=== PATIENT | male | born 1940 | race Caucasian/White ===

== ENCOUNTER 2017-03-24 16:21 | Emergency (ER) | payer OTHER, MEDICARE ==
[~2017-03-24] VITALS: Ht 175.3 cm; Wt 102.1 kg
[~2017-03-24 16:21] MED LIST: AMLODIPINE; BACTRIM DS TAB1 EACH PO; BAYER CHEWABLE81 MG PO; CENTRUM SILVER1 EAC4 PO; FISH OIL 1,001000 MG PO; FLONASE 0.05%50 MCG NASAL; GLIPIZIDE 5 MG T5 MG PO; GLUCOPHAGE1000 MG PO; GLYBURIDE; LISINOPRIL; LISINOPRIL20 MG PO; LORATIDINE 10 M10 M1 PO; METFORMIN; NORVASC 5 MG TAB5 MG PO; PENTOXIFYLLINE400 MG PO; TRENTAL; ZOCOR; ZOCOR 20 MG TAB20 M1 PO
[2017-03-24 17:04] LABS: ABSOLUTE EOSINOPHILS 0.2 thou/uL (0.0-0.7); ABSOLUTE LYMPHOCYTES 0.9 thou/uL (0.8-5.3); ABSOLUTE MONOCYTES 0.5 thou/uL (0.0-1.2); ABSOLUTE NEUTROPHILS 5.7 thou/uL (1.6-8.1); BASOPHILS 0.5 %; EOSINOPHILS 2.1 %; HEMATOCRIT 41.8 % (42.0-52.0); HEMOGLOBIN 14.5 gm/dL (14.0-18.0); LYMPHOCYTES 12.2 %; MCH 30.5 pg (26.0-34.0); MCHC 34.6 g/dL (28.0-37.0); MCV 88.1 fL (80.0-100.0); MONOCYTES 6.9 %; MPV 7.3 fl. (7.2-11.1); NUCLEATED RBCS 0 /100WBC; PLATELET COUNT* 215 thou/uL (150-400); POLYS 78.3 %; RBC 4.75 mil/uL (4.50-6.00); RDW-CV 12.7 % (10.5-14.5); WBC 7.3 thou/uL (4.0-11.0)
[2017-03-24] MEDS ORDERED: CEFDINIR300 MG PO (17:35)
[2017-03-24] MEDS ORDERED: ANTIVERT25 MG PO (17:35)
[2017-03-24 17:58] LABS: ANION GAP 9 mmol/L (7-16); BUN 18 mg/dL (7-18); CHLORIDE 99 mmol/L (98-107); CO2 27 mmol/L (21-32); POTASSIUM 4.2 mmol/L (3.5-5.1); SODIUM 135 mmol/L (136-145)
[2017-03-24 17:59] LABS: ALBUMIN 3.9 g/dL (3.4-5.0); ALKALINE PHOSPHATASE 87 U/L (46-116); CALCIUM 9.2 mg/dL (8.5-10.1); GLUCOSE 227 mg/dL (70-99); SGOT 19 U/L (15-37); SGPT 28 U/L (30-65); TOTAL BILIRUBIN 0.7 mg/dL (<0.1-1.0); TOTAL PROTEIN 7.2 g/dL (6.4-8.2); TROPONIN-I LEVEL <0.06 ng/mL (<0.06)
[2017-03-24 18:12] VITALS: BP 180/91
--- NOTE | 2017-03-25 10:20 | EKG ---
[place] [address] ELECTROCARDIOGRAM REPORT Name: MARGI ASENCIO Gilberto Room: [facility]#: [id number] Admission: 03/24/17 Attend Phys: Discharge: 03/24/17 Date of : 44 Report #: [id number] THIS REPORT FOR: //name// [facility] ED Test Date: 2017-03-24 Test Time: 16:34:51 Pat Name: MARGI ASENCIO Department: Room: Gender: M Founder And President: : 1940 Requested By: Griffin Vincent Order Number: [id number] MD: Omar Stanton Measurements Intervals [place] Rate: 70 P: 52 MS: 191 QRS: 1 QRSD: 92 T: 18 QT: 403 QTc: 435 Interpretive Statements Sinus rhythm Baseline wander in lead(s) III Compared to ECG 08/29/2013 08:17:13 No significant changes Electronically Signed On 03-25-2017 10:19:51 SURVEY WORKER by Omar Stanton [email or web address] <ELECTRONICALLY SIGNED> By: Omar Stanton MD, [facility] 03/25/17 1019 1634 163 Omar Stanton MD, FACC /EPI
[2017-04-05] MEDS ORDERED: ASA5UEC PO (13:35)
[2017-04-05] MEDS ORDERED: GLIPIZIDE 10 MG10 MG PO (13:35)
== END 2017-03-24 18:12 | disposition home or self-care (01) ==
LOC: M.ERS 16:21
PROVIDERS: Emergency Medicine Emergency Medical Services
DX: R42 Dizziness and giddiness (principal); E78.00 Pure hypercholesterolemia, unspecified; E11.9 Type 2 diabetes mellitus without complications

== ENCOUNTER 2017-05-02 10:02 | Emergency (ER) | payer OTHER, MEDICARE ==
[~2017-05-02] VITALS: Ht 175.3 cm; Wt 97.1 kg
[~2017-05-02 10:02] MED LIST changes: +ANTIVERT25 MG PO; +ASA5UEC PO; +CEFDINIR300 MG PO; +GLIPIZIDE 10 MG10 MG PO
[2017-05-02] MEDS ORDERED: JANUVIA100 MG PO (10:08)
[2017-05-02 10:43] LABS: ABSOLUTE EOSINOPHILS 0.2 thou/uL (0.0-0.7); ABSOLUTE LYMPHOCYTES 0.5 thou/uL (0.8-5.3); ABSOLUTE MONOCYTES 0.4 thou/uL (0.0-1.2); ABSOLUTE NEUTROPHILS 4.1 thou/uL (1.6-8.1); BASOPHILS 0.8 %; EOSINOPHILS 3.5 %; HEMOGLOBIN 13.9 gm/dL (14.0-18.0); MCH 30.5 pg (26.0-34.0); MCHC 34.7 g/dL (28.0-37.0); MONOCYTES 7.1 %; MPV 7.3 fl. (7.2-11.1); NUCLEATED RBCS 0 /100WBC; PLATELET COUNT* 197 thou/uL (150-400); POLYS 78.6 %; RBC 4.55 mil/uL (4.50-6.00); RDW-CV 13.3 % (10.5-14.5); WBC 5.2 thou/uL (4.0-11.0)
[2017-05-02 10:52] LABS: PROTIME 10.2 Seconds (9.20-11.50)
[2017-05-02 10:54] LABS: ANION GAP 7 mmol/L (7-16); BUN 18 mg/dL (7-18); CALCIUM 9.1 mg/dL (8.5-10.1); CHLORIDE 103 mmol/L (98-107); CO2 26 mmol/L (21-32); GLUCOSE 245 mg/dL (70-99); POTASSIUM 4.6 mmol/L (3.5-5.1); SODIUM 136 mmol/L (136-145)
[2017-05-02 11:05] LABS: ALBUMIN 3.5 g/dL (3.4-5.0); ALKALINE PHOSPHATASE 82 U/L (46-116); LIPASE 260 U/L (73-393); NT-PRO BRAIN NAT PEPTIDE 186 pg/mL (<300); SGOT 13 U/L (15-37); SGPT 24 U/L (30-65); TOTAL BILIRUBIN 0.4 mg/dL (<0.1-1.0); TOTAL PROTEIN 6.6 g/dL (6.4-8.2); TROPONIN-I LEVEL <0.06 ng/mL (<0.06)
[2017-05-02 11:07] LABS: URINE BILIRUBIN NEGATIVE (Negative); URINE BLOOD NEGATIVE (Negative); URINE CLARITY CLEAR; URINE COLOR STRAW; URINE GLUCOSE-RANDOM 2+ (Negative); URINE KETONES NEGATIVE (Negative); URINE LEUKOCYTES-REFLEX NEGATIVE (Negative); URINE NITRITE-REFLEX NEGATIVE (Negative); URINE PROTEIN NEGATIVE (Negative); URINE UROBILINOGEN 0.2 E.U./dl (0.2-1.0)
[2017-05-02 13:42] VITALS: BP 178/70
--- NOTE | 2017-05-02 16:33 | EKG ---
[place] [address] ELECTROCARDIOGRAM REPORT Name: ELIFSAGRARIO Macias Room: [facility]#: [id number] Admission: 05/02/17 Attend Phys: Discharge: Date of : 44 Report #: [id number] THIS REPORT FOR: //name// [facility] ED Test Date: 2017-05-02 Test Time: 10:11:00 Pat Name: SAGRARIO ASENCIO Department: Room: Gender: M Silk Spooler: : 1940 Requested By: Tyrone Yarbrough Order Number: [id number] MD: Maynor Gastelum Measurements Intervals [place] Rate: 60 P: 48 KS: 195 QRS: 6 QRSD: 93 T: 37 QT: 410 QTc: 410 Interpretive Statements Sinus rhythm Compared to ECG 04/03/2017 14:10:28 No significant changes Electronically Signed On 05-02-2017 16:33:32 SLPS by Maynor Gastelum [email or web address] <ELECTRONICALLY SIGNED> By: Maynor Gastelum MD, [facility] 05/02/17 1633 1011 1011 Maynor Gastelum MD, FACC /EPI
== END 2017-05-02 13:44 | disposition home or self-care (01) ==
LOC: M.ERS 10:02
PROVIDERS: Emergency Medicine
DX: R42 Dizziness and giddiness (principal); E11.9 Type 2 diabetes mellitus without complications; E78.00 Pure hypercholesterolemia, unspecified; Z86.73 Personal history of transient ischemic attack (TIA), and cerebral infarction without residual deficits; Z88.2 Allergy status to sulfonamides

== ENCOUNTER 2017-05-04 04:04 | Inpatient (IN) | payer OTHER, MEDICARE ==
[~2017-05-04] VITALS: Ht 175.3 cm; Wt 53.5 kg
[2017-05-04] VITALS (7 sets, daily range): BP systolic 122–184; BP diastolic 60–93
[~2017-05-04 04:04] MED LIST changes: +JANUVIA100 MG PO
[2017-05-04 04:27] LABS: ABSOLUTE EOSINOPHILS 0.2 thou/uL (0.0-0.7); ABSOLUTE LYMPHOCYTES 0.8 thou/uL (0.8-5.3); ABSOLUTE MONOCYTES 0.4 thou/uL (0.0-1.2); ABSOLUTE NEUTROPHILS 3.6 thou/uL (1.6-8.1); BASOPHILS 0.8 %; EOSINOPHILS 4.8 %; HEMATOCRIT 40.3 % (42.0-52.0); HEMOGLOBIN 13.7 gm/dL (14.0-18.0); LYMPHOCYTES 15.4 %; MCHC 34.1 g/dL (28.0-37.0); MCV 88.1 fL (80.0-100.0); MONOCYTES 8.6 %; MPV 7.1 fl. (7.2-11.1); NUCLEATED RBCS 0 /100WBC; PLATELET COUNT* 208 thou/uL (150-400); POLYS 70.4 %; RBC 4.57 mil/uL (4.50-6.00); RDW-CV 13.2 % (10.5-14.5); WBC 5.1 thou/uL (4.0-11.0)
[2017-05-04 04:38] LABS: ANION GAP 8 mmol/L (7-16); BUN 25 mg/dL (7-18); CALCIUM 9.3 mg/dL (8.5-10.1); CHLORIDE 100 mmol/L (98-107); CO2 28 mmol/L (21-32); CREATININE 1.1 mg/dL (0.6-1.3); GLUCOSE 300 mg/dL (70-99); POTASSIUM 4.5 mmol/L (3.5-5.1); SODIUM 136 mmol/L (136-145)
[2017-05-04 04:39] LABS: APTT 26.1 Seconds (25.0-31.3); INR 1.1; PROTIME 10.3 Seconds (9.20-11.50)
[2017-05-04 04:47] LABS: ALBUMIN 3.6 g/dL (3.4-5.0); ALKALINE PHOSPHATASE 81 U/L (46-116); NT-PRO BRAIN NAT PEPTIDE 132 pg/mL (<300); SGOT 11 U/L (15-37); SGPT 23 U/L (30-65); TOTAL BILIRUBIN 0.5 mg/dL (<0.1-1.0); TOTAL PROTEIN 6.9 g/dL (6.4-8.2); TROPONIN-I LEVEL <0.06 ng/mL (<0.06)
[2017-05-04 06:42] LABS: URINE BILIRUBIN NEGATIVE (Negative); URINE BLOOD NEGATIVE (Negative); URINE CLARITY CLEAR; URINE COLOR YELLOW; URINE GLUCOSE-RANDOM 3+ (Negative); URINE KETONES NEGATIVE (Negative); URINE LEUKOCYTES-REFLEX NEGATIVE (Negative); URINE NITRITE-REFLEX NEGATIVE (Negative); URINE PROTEIN NEGATIVE (Negative); URINE UROBILINOGEN 0.2 E.U./dl (0.2-1.0)
--- NOTE | 2017-05-04 11:29 | EKG ---
[place] [address] ELECTROCARDIOGRAM REPORT Name: SAGRAIRO ASENCIO Room: [address] ADM IN .R.#: [id number] Admission: 05/04/17 Attend Phys: Ralph Lopez MD Discharge: Date of : 44 Report #: [id number] THIS REPORT FOR: //name// [facility] ED Test Date: 2017-05-04 Test Time: 04:19:05 Pat Name: SAGRARIO ASENCIO Department: Room: [facility] Gender: Guest Experience Specialist: ANTHONY Paige : 1940 Requested By: Tor Elkins Order Number: [id number] MD: Maynor Gastelum Measurements Intervals [place] Rate: 59 P: 73 IN: 196 QRS: 3 QRSD: 95 T: 31 QT: 426 QTc: 422 Interpretive Statements Sinus rhythm Low voltage, precordial leads Compared to ECG 05/02/2017 10:11:00 Low QRS voltage now present Electronically Signed On 05-04-2017 11:28:50 DINING ROOM BUSSER by Maynor Gastelum [email or web address] <ELECTRONICALLY SIGNED> By: Maynor Gastelum MD, [facility] 05/04/17 1128 0419 0419 Maynor Gastelum MD, [facility] /EPI
[2017-05-05] VITALS: BP 108/53; BP 123/66
[2017-05-05 02:07] LABS: GLYCOHEMOGLOBIN (HGB A1C) 9.7 % (4.8-5.6)
[2017-05-05 04:00] VITALS: BP 111/52
[2017-05-05 07:50] VITALS: BP 151/81
--- NOTE | 2017-05-05 10:39 | CON ---
[address] [address] CONSULTATION Name: ELIFSAGRARIO Macias Room: [address] IN .#: [id number] Admission: 05/04/17 Attend Phys: Ralph Lopez MD Discharge: Date of : 44 Report #: [id number] THIS REPORT FOR: //name// CC: [facility]I physician/PCP Ralph Lopez DATE OF SERVICE: 05/04/2017 HISTORY OF PRESENT ILLNESS: This is a 77-year-old male patient who was seen by me on his last admission. This patient had a posterior cerebral artery stroke. He was partly worked up by a community organization worker and was going to be worked up as an outpatient, but I do not know whether he followed up with them or not. He has this history of vertigo for some time. This predated his stroke. He had two episodes of pretty severe vertigo. It was associated with nausea. He did not have any clear cut seizure activity. REVIEW OF SYSTEMS: Indicates that this patient's dizziness predate this patient's stroke. This patient also has a prior tumor that has been present on his imaging studies. He has not had any ENT evaluation. He was going to go to an male model, but he has not been there yet. This was his relevant 14-point review of systems. PAST MEDICAL HISTORY: Positive for stroke, but his dizziness predated that. FAMILY HISTORY: Noncontributory. SOCIAL HISTORY: He does not smoke. PHYSICAL EXAMINATION: NEUROLOGICAL: The patient's examination was carried out. His neurological examination is that alert, responsive, able to follow simple and complex command. His speech, concentration, fund of knowledge and memory is at his baseline. Cranial nerve examination 2 through 12 still indicate hemianopsia. He moves symmetrically. There is no meningeal sign. NECK: There is no carotid bruit. CARDIOVASCULAR: No atrial fibrillation has been documented. LUNGS: No respiratory difficulty or rhonchi. VITAL SIGNS: This patient's blood pressure is 184/93, respirations 18, pulse is 63 and temperature is 98.1. EXTREMITIES: There is no edema or cyanosis. LABORATORY DATA: His white count is 5.1. RADIOLOGICAL DATA: His imaging study was reviewed and he had a CT and MRI and [place] [address] CONSULTATION Name: DIANAKEISHAJEROSAGRARIO Gilberto Room: [address]#: [id number] Admission: 05/04/17 Attend Phys: Ralph Lopez MD Discharge: Date of : 44 Report #: [id number] IMPRESSION: 1. It is unlikely that the patient's dizziness is associated with present symptomatology. I think we need to look for the other causes. He needs an ENT evaluation and he also needs cardiac evaluation. 2. He is a diabetic, so he can get autonomic neuropathy and his diabetes does not appear to be well controlled, but the symptoms are not very typical for that. 3. He does have tumor. He can develop seizures and that is a possible that he can have a vertiginous seizure. RECOMMENDATIONS: So far, the workup has been non-rewarding in this patient, I am going to go ahead and do an EEG in this patient. He just had a CT chest protocol, so I do not think we should do CT angio of the head and neck. I will check an EEG, but tried to get, I think we should give him a trial with Lamictal. He should have Cardiology followup and should also have an ENT followup because I do not think any ENT physician comes here anymore. More than 50 minutes of time was spent taking care of this patient today and majority of that time was spent counseling this patient on above matters. Dr. Buckley will follow up this patient with you from tomorrow. <ELECTRONICALLY SIGNED> By: Miki David MD 05/05/17 1039 1629 0256Miki David MD /nt
[2017-05-05] MEDS ORDERED: VISTARIL 25 MG25 M1 PO (12:15)
[2017-05-05 12:27] VITALS: BP 126/67
[2017-05-05 16:13] VITALS: BP 119/64
[2017-05-05 20:00] VITALS: BP 126/67
[2017-05-06] VITALS: BP 114/57
[2017-05-06 04:00] VITALS: BP 143/67
[2017-05-06 06:06] LABS: HEMATOCRIT 38.5 % (42.0-52.0); HEMOGLOBIN 13.1 gm/dL (14.0-18.0); MCV 88.3 fL (80.0-100.0); MPV 7.3 fl. (7.2-11.1); RBC 4.36 mil/uL (4.50-6.00); RDW-CV 13.3 % (10.5-14.5); WBC 5.2 thou/uL (4.0-11.0)
[2017-05-06 06:33] LABS: CALCIUM 9.1 mg/dL (8.5-10.1); CREATININE 1.1 mg/dL (0.6-1.3); MAGNESIUM 1.8 mg/dL (1.8-2.4); POTASSIUM 4.3 mmol/L (3.5-5.1)
[2017-05-06 08:47] VITALS: BP 128/71
[2017-05-06 12:00] VITALS: BP 122/69
--- NOTE | 2017-05-06 13:28 | CON ---
[address] [address] CONSULTATION Name: ELIFSAGRARIO Gilberto Room: [address] IN M.R.#: [id number] Admission: 05/04/17 Attend Phys: Ralph Lopez MD Discharge: Date of : 44 Report #: [id number] THIS REPORT FOR: //name// CC: Jeffry Gandara DO [facility] physician/PCP Ralph Lopez DATE OF SERVICE: 05/05/2017 TYPE OF REPORT: Cardiology consultation HISTORY OF PRESENT ILLNESS: The patient is a 77-year-old single white male who I was asked to see in the hospital today after he complained of being dizzy. The patient has had several hospitalizations here at [facility]. He was actually admitted here to [facility] back in [address] Rodas. He complained of being short of breath. He underwent a nuclear stress test at that time. There was a perfusion defect of the anterior wall, partially reversible. Ejection fraction is 65%. This is felt to represent apical thinning versus partial thickness infarction. Ejection fraction 65%. Medical therapy was recommended. He had an echocardiogram at that time that showed ejection fraction 55%. It was recommended that he be treated medically. The patient was just admitted here to [facility] a month ago complaining of lightheadedness and dizziness. He was seen at that time by my partner, Dr. Joe. He was felt to have had a stroke. Dr. Joe performed a MIRNA on April 05 that showed left ventricular hypertrophy, ejection fraction 60% and no PFO. He was discharged with a diagnosis of a stroke. His dizziness improved. He was discharged on aspirin 325 mg a day. The patient returned to the Emergency Room last night complaining of dizziness. He had problems with balance. Denied any chest pain, shortness of breath or palpitations. He was admitted to a monitored bed. Cardiology consultation was requested. PAST MEDICAL HISTORY: Otherwise significant for knee surgery, hypertension, diabetes and hyperlipidemia. MEDICATIONS: Include amlodipine, aspirin, lisinopril, metformin, simvastatin and Januvia. ALLERGIES: He has an allergy to SULFA DRUGS. FAMILY HISTORY: Negative for heart disease. SOCIAL HISTORY: He has been twice. 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 Quit smoking years ago. No alcohol abuse. REVIEW OF SYSTEMS: He has had no history of asthma, peptic ulcer disease. He has a history of prostate cancer. No psychiatric illness[place] [address] CONSULTATION Name: SAGRARIO ASENCIO Room: [address]#: [id number] Admission: 05/04/17 Attend Phys: Ralph Lopez MD Discharge: Date of : 44 Report #: [id number] PHYSICAL EXAMINATION: GENERAL: Revealed an elderly male, lying in bed, appears in no acute distress. VITAL SIGNS: Reveal a blood pressure of following: He had 130/60, pulse 60 and he is afebrile. HEENT: He is anicteric. Conjunctivae pink. Mucous membranes moist. NECK: Veins nondistended. No carotid bruits. CHEST: Clear to auscultation. CARDIAC: Regular rate and rhythm. ABDOMEN: Soft and nontender. EXTREMITIES: Had no edema. Dorsalis pedis pulse 1+ bilaterally. SKIN: Warm and dry. NEUROLOGICAL: Nonfocal. LYMPHATIC: No adenopathy. MUSCULOSKELETAL: No joint effusion. RADIOLOGICAL DATA: His ECG shows a sinus rhythm. There is no ST or T-wave change. LABORATORY DATA: Sodium 136, creatinine 1.1 and glucose 300. Troponin 0.06. Cholesterol 173, triglyceride 127, HDL 45 and LDL 103. TSH 1.3. White blood cell count 5.1 and hemoglobin 13.7. IMPRESSION AND RECOMMENDATIONS: 1. Vertigo. The patient seen by Neurology. 2. Recent stroke. The patient does take an aspirin a day. 3. Hypertension. The patient is on angiotensin-converting enzyme inhibitor and calcium dee. 4. Diabetes. 5. Hyperlipidemia. The patient is on a statin drug. 6. History of prostate cancer. Recommend no further cardiac evaluation. Cardiology will sign off at this time. No cardiac followup required. <ELECTRONICALLY SIGNED> By: Jamie Sahni MD, FACC 05/06/17 1328 1546 15Jamie Sahni MD, FACC /nt
[2017-05-06 16:00] VITALS: BP 130/80
[2017-05-07] VITALS: BP 120/64
[2017-05-07 04:13] VITALS: BP 124/61
[2017-05-07 08:00] VITALS: BP 145/75
[2017-05-07 12:00] VITALS: BP 121/61
[2017-05-07 16:34] VITALS: BP 135/67
[2017-05-08] VITALS: BP 100/57
[2017-05-08 04:00] VITALS: BP 116/57
[2017-05-08 08:00] VITALS: BP 123/65
[2017-05-08] MEDS ORDERED: ATORVASTATIN CA40 MG PO (09:19)
[2017-05-08] MEDS ORDERED: DIAZEPAM2 MG PO (09:19)
[2017-05-08] MEDS ORDERED: GLUCOPHAGE1000 MG PO (09:23)
[2017-05-08 12:00] VITALS: BP 116/72
[2017-05-08 13:05] VITALS: BP 123/65
== END 2017-05-08 14:45 | disposition home or self-care (01) | DRG 74 ==
LOC: M.ERS 04:04 → M.TBA-ER 06:12 → M.2W 06:12
PROVIDERS: Family Medicine; Internal Medicine; ADMIT Internal Medicine
DX: E11.43 Type 2 diabetes mellitus with diabetic autonomic (poly)neuropathy (principal); E44.1 Mild protein-calorie malnutrition; E11.65 Type 2 diabetes mellitus with hyperglycemia; H81.399 Other peripheral vertigo, unspecified ear; I10 Essential (primary) hypertension; E78.00 Pure hypercholesterolemia, unspecified; Z79.84 Long term (current) use of oral hypoglycemic drugs; Z79.899 Other long term (current) drug therapy; Z88.2 Allergy status to sulfonamides; Z79.82 Long term (current) use of aspirin; Z87.891 Personal history of nicotine dependence; Z85.46 Personal history of malignant neoplasm of prostate

== ENCOUNTER 2017-05-28 17:51 | Emergency (ER) | payer OTHER, MEDICARE ==
[~2017-05-28] VITALS: Ht 175.3 cm; Wt 97.1 kg
[~2017-05-28 17:51] MED LIST changes: +ATORVASTATIN CA40 MG PO; +DIAZEPAM2 MG PO; +VISTARIL 25 MG25 M1 PO
[2017-05-28] MEDS ORDERED: VERTICALM25 MG PO (18:40)
[2017-05-28] MEDS ORDERED: FLONASE 0.05%50 MCG NASAL (18:40)
[2017-05-28] MEDS ORDERED: ZOFRAN ODT4 MG PO (18:40)
[2017-05-28 18:56] VITALS: BP 148/70
== END 2017-05-28 19:09 | disposition home or self-care (01) ==
LOC: M.ERS 17:51
DX: H65.93 Unspecified nonsuppurative otitis media, bilateral (principal); R42 Dizziness and giddiness; E11.9 Type 2 diabetes mellitus without complications; E78.00 Pure hypercholesterolemia, unspecified; Z86.73 Personal history of transient ischemic attack (TIA), and cerebral infarction without residual deficits; Z88.2 Allergy status to sulfonamides